=== PATIENT | female | born 1995 | race Caucasian/White ===

== ENCOUNTER 2017-09-21 07:49 | Emergency (ER) | payer BC, OTHER ==
[~2017-09-21] VITALS: Ht 152.4 cm; Wt 56.5 kg
[2017-09-21 07:52] VITALS: TEMP 36.6; Ht 152.4 cm; Wt 56.5 kg
[2017-09-21] MEDS ORDERED: SODIUM CHLORIDE 0.9% 1000ML 1,000 ML IV STA (08:03)
[2017-09-21] MEDS ORDERED: ONDANSETRON INJ 2 MG/ML 2 ML VIAL IV STA (08:03)
[2017-09-21] MEDS: MoRPHine SULFATE 4 MG/ML 1 ML CARP\\VIAL IV PRN ×2 (08:41→10:34)
[2017-09-21 08:48] LABS: BASO % 0.3 %; BASO ABS # 0.03 K/uL (0-0.2); EOS % 0.3 %; EOS ABS # 0.03 K/uL (0-0.5); HEMATOCRIT 45.7 % (37-47); HEMOGLOBIN 15.6 g/dL (12.0-16.0); IG# 0.03 K/uL (0.00-0.02); LYMPH % 15.6 %; LYMPH ABS # 1.54 K/uL (1.2-3.4); MEAN CELL VOLUME 84.8 fL (80-100); MEAN CORPUSCULAR HEMOGLOBIN 28.9 pg (25-34); MEAN CORPUSCULAR HGB CONC 34.1 g/dl (32-36); MEAN PLATELET VOLUME 9.3 fL (7.4-10.4); MONO % 11.9 %; MONO ABS # 1.18 K/uL (0.11-0.59); NEUT % 71.6 %; NEUT ABS # 7.08 K/uL (1.4-6.5); PLATELET COUNT 282 K/uL (130-400); RED CELL DISTRIBUTION WIDTH CV 12.3 % (11.5-14.5); RED CELL DISTRIBUTION WIDTH SD 37.5 fL (36.4-46.3); WHITE BLOOD COUNT 9.89 K/uL (4.8-10.8)
[2017-09-21 09:07] LABS: ALBUMIN 4.6 gm/dl (3.4-5.0); CALCIUM 9.6 mg/dl (8.5-10.1); CREATININE 0.78 mg/dl (0.60-1.20); TOTAL PROTEIN 8.6 gm/dl (6.4-8.2)
[2017-09-21] MEDS ORDERED: POTASSIUM CHLORIDE 10 MEQ TABCR PO STA (10:24)
[2017-09-21] MEDS ORDERED: OPTIRAY 320 IV PRN (10:30)
--- NOTE | 2017-09-21 12:09 | DIAGNOSTIC IMAGING REPORT ---
ABD/PELVIS IV CONTRAST ONLY CT DOSE: 274.89 mGy.cm HISTORY: Pain. Nausea. abd pain vomiting TECHNIQUE: Multiaxial CT images of the abdomen and pelvis were performed following the use of intravenous contrast. A dose lowering technique was utilized adhering to the principles of ALARA. COMPARISON STUDY: None. FINDINGS: Lung bases are clear. Liver spleen and pancreas appear uniform. There is general fluid-filled mild colonic distention with moderate wall thickening. There is a trace amount of generalized pericolonic infiltrative change. There is trace amount of free ascites within the right and to a lesser extent left paracolic gutter and pelvic cul-de-sac. This presumably is reactive. No evidence for abscess collection or obstruction. IMPRESSION: 1. Generalized colitis involving the bulk of the colon with multiple fluid-filled loops of fluid-filled somewhat edematous colon. 2. No evidence for abscess collection or obstruction. 3. Trace amount of abdominal and pelvic ascites. The above report was generated using voice recognition software. It may contain grammatical, syntax or spelling errors. Electronically signed by: Abhishek May M.D. 09/21/2017 12:08 PM Dictated Date/Time: 09/21/2017 12:03 PM
[2017-09-21] MEDS ORDERED: ONDA4TAB10 SL (13:03)
--- NOTE | 2017-09-21 13:04 | EMERGENCY ROOM VISIT NOTE ---
History Report prepared by Aldo: Venkatesh Trejo Under the Supervision of: Dr. Chin Horn D.O. First contact with patient: 07:59 Chief Complaint: ABDOMINAL PAIN Stated Complaint: NAUSEA,VOMITING,ABD PAIN History of Present Illness The patient is a 21 year old female who presents to the Emergency Room with complaints of daily nausea, vomiting, and diarrhea that she has been experiencing for the past week. The patient notes that the symptoms have been intermittent for the past "couple of weeks," but adds that they have been more frequent/severe for the past week. She notes that she vomited 4 times already this morning. She is on her menstrual cycle currently which she has been on " for like a month now." Source of History: patient Onset: Past week Position: abdomen Quality: other (Nausea) Timing: intermittent (for "couple" of weeks), other (daily for the past week ) Associated Symptoms: + vomiting, + abdominal pain, + diarrhea Review of Systems See HPI for pertinent positives & negatives. A total of 10 systems reviewed and were otherwise negative. Past Medical & Surgical Patient denies past medical histories. Family History Patient reports no known family medical history. Social History Smoking Status: Never Smoker Marital Status: single Housing Status: lives with family Occupation Status: employed Current/Historical Medications Scheduled Ondasetron Odt (Zofran Odt), 4 MG SL Q6H Allergies Coded Allergies: Shellfish (Unverified Allergy, Intermediate, ., 09/21/17) Physical Exam Vital Signs Date Time Temp Pulse Resp B/P (MAP) Pulse Ox O2 Delivery O2 Flow Rate FiO2 09/21/17 12:43 72 18 110/78 100 Room Air 09/21/17 11:47 78 16 109/74 98 Room Air 09/21/17 09:14 79 16 103/73 98 Room Air 09/21/17 07:52 36.6 87 18 117/79 100 Room Air Physical Exam CONSTITUTIONAL/VITAL SIGNS: Reviewed / noted above. GENERAL: Non-toxic in appearance. INTEGUMENTARY: Warm, dry, and Parchment. HEAD: Normocephalic. EYES: without scleral icterus or trauma. ENT/OROPHARYNX: clear and moist. LYMPHADENOPATHY/NECK: Is supple without lymphadenopathy or meningismus. RESPIRATORY: Lungs clear and equal. CARDIOVASCULAR: Regular rate and rhythm. GI/ABDOMEN: Soft with tenderness to palpation of the periumbilical area. No organomegaly or pulsatile mass. No rebound or guarding. Normal bowel sounds. EXTREMITIES: Warm and well perfused. BACK: No CVA tenderness. NEUROLOGICAL: Intact without focal deficits. PSYCHIATRIC: normal affect. MUSCULOSKELETAL: Normally developed with good muscle tone. Medical Decision & Procedures Laboratory Results 09/21/17 08:30 Red Blood Count 5.39, Mean Corpuscular Volume 84.8, Mean Corpuscular Hemoglobin 28.9, Mean Corpuscular Hemoglobin Concent 34.1, Mean Platelet Volume 9.3, Neutrophils (%) (Auto) 71.6, Lymphocytes (%) (Auto) 15.6, Monocytes (%) (Auto) 11.9, Eosinophils (%) (Auto) 0.3, Basophils (%) (Auto) 0.3, Neutrophils # (Auto ) 7.08, Lymphocytes # (Auto) 1.54, Monocytes # (Auto) 1.18, Eosinophils # (Auto ) 0.03, Basophils # (Auto) 0.03 09/21/17 08:30 Test 09/21/17 08:30 09/21/17 08:35 White Blood Count 9.89 K/uL (4.8-10.8) Red Blood Count 5.39 M/uL (4.2-5.4) Hemoglobin 15.6 g/dL (12.0-16.0) Hematocrit 45.7 % (37-47) Mean Corpuscular Volume 84.8 fL (80-100) Mean Corpuscular Hemoglobin 28.9 pg (25-34) Mean Corpuscular Hemoglobin Concent 34.1 g/dl (32-36) Platelet Count 282 K/uL (130-400) Mean Platelet Volume 9.3 fL (7.4-10.4) Neutrophils (%) (Auto) 71.6 % Lymphocytes (%) (Auto) 15.6 % Monocytes (%) (Auto) 11.9 % Eosinophils (%) (Auto) 0.3 % Basophils (%) (Auto) 0.3 % Neutrophils # (Auto) 7.08 K/uL (1.4-6.5) Lymphocytes # (Auto) 1.54 K/uL (1.2-3.4) Monocytes # (Auto) 1.18 K/uL (0.11-0.59) Eosinophils # (Auto) 0.03 K/uL (0-0.5) Basophils # (Auto) 0.03 K/uL (0-0.2) RDW Standard Deviation 37.5 fL (36.4-46.3) RDW Coefficient of Variation 12.3 % (11.5-14.5) Immature Granulocyte % (Auto) 0.3 % Immature Granulocyte # (Auto) 0.03 K/uL (0.00-0.02) Anion Gap 8.0 mmol/L (3-11) Est Creatinine Clear Calc Drug Dose 89.1 ml/min Estimated GFR () 125.1 Estimated GFR (Non- 107.9 BUN/Creatinine Ratio 9.6 (10-20) Calcium Level 9.6 mg/dl (8.5-10.1) Total Bilirubin 1.5 mg/dl (0.2-1) Direct Bilirubin 0.4 mg/dl (0-0.2) Aspartate Amino Transf (AST/SGOT) 18 U/L (15-37) Alanine Aminotransferase (ALT/SGPT) 18 U/L (12-78) Alkaline Phosphatase 48 U/L (45-117) Total Protein 8.6 gm/dl (6.4-8.2) Albumin 4.6 gm/dl (3.4-5.0) Lipase 58 U/L (73-393) Urine Color DK YELLOW Urine Appearance CLOUDY (CLEAR) Urine pH 5.5 (4.5-7.5) Urine Specific [place] 1.040 (1.000-1.030) Urine Protein 1+ (NEG) Urine Glucose (UA) NEG (NEG) Urine Ketones 3+ (NEG) Urine Occult Blood 3+ (NEG) Urine Nitrite NEG (NEG) Urine Bilirubin NEG (NEG) Urine Urobilinogen NEG (NEG) Urine Leukocyte Esterase SMALL (NEG) Urine WBC (Auto) 10-30 /hpf (0-5) Urine RBC (Auto) 5-10 /hpf (0-4) Urine Hyaline Casts (Auto) /lpf (0-5) Urine Epithelial Cells (Auto) >30 /lpf (0-5) Urine Bacteria (Auto) 1+ (NEG) Urine Crystals CALCIUM OXALATE (NONE Urine Pathogenic Casts /lpf (0) Urine Test NEG (NEG) Date/Time Source Procedure Growth Status 09/21/17 09:24 Stool C.difficile Toxin B Gene (PCR) - Final No C. difficile toxin B gene detected Complete Laboratory results as stated above per my review. Medications Administered Medications (Trade) Dose Ordered Sig/Charlie Route Start Time Stop Time Status Last Admin Dose Admin Sodium Chloride 1,000 ml @ 999 mls/hr Q1H1M STAT IV 09/21/17 08:03 09/21/17 09:03 DC 09/21/17 08:40 999 MLS/HR Ondansetron HCl (Zofran Inj) 4 mg NOW STAT IV 09/21/17 08:03 09/21/17 08:05 DC 09/21/17 08:41 4 MG Morphine Sulfate (MoRPHine SULFATE INJ) 4 mg Q1H PRN IV 09/21/17 08:15 10/05/17 08:14 09/21/17 10:34 4 MG Potassium Chloride (Klor-Con M10) 40 meq NOW STAT PO 09/21/17 10:24 09/21/17 10:25 DC 09/21/17 10:35 40 MEQ ED Course 0801: Previous medical records were reviewed. The patient was evaluated in room B10. A complete history and physical examination was performed. 0803: Ordered 4 mg Zofran IV, Sodium Chloride 1000 mL @ 999 mL/hr IV. 0815: Ordered Morphine Sulfate 4 mg IV. 1026: I checked on the patient at this time. Medical Decision Differential considered: pancreatitis, hepatitis, or acute cholecystitis, AAA, UTI, pyelonephritis, kidney stones, appendicitis, diverticulitis, shingles, bowel obstruction mesenteric ischemia, intussusception,hernia, ovarian torsion, ruptured ovarian cyst,ectopic , . This is a 21-year-old female who presents to the ED with a chief complaint of abdominal pain. She reports also some nausea, vomiting diarrhea and she states that she has had the symptoms off and on for a couple weeks. It seemed to be worse today. She states that she had 4 episodes of vomiting today. She also reports that her last menstrual period started about a month ago. She has been having her period for the past month. She states that she has not seen a desktop specialist for this. Her vital signs are normal. Her exam reveals some tenderness around the periumbilical area. CBC is normal, chemistry panel does reveal a slight elevation of the bilirubin at 1.5 and the potassium is 3.0. Urine reveals 3+ ketones and some blood. The patient is currently on her menstrual cycle. It is otherwise contaminated. The C. difficile test was negative. A CT scan of the abdomen pelvis reveals some generalized colitis. The patient was told the results of the test. She was advised to follow-up with Dr. Waterman. She was also advised to possibly see GI for symptoms do not persist. 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 The patient is felt to be stable for discharge at this time. Prescription for Zofran was provided. While the patient was here, she was treated with IV fluids , IV Zofran, IV morphine and potassium p.o. Medication Reconcilliation Current Medication List: was personally reviewed by me Blood Pressure Screening Patient's blood pressure: Normal blood pressure Impression Primary Impression: Colitis Scribe Attestation The scribe's documentation has been prepared under my direction and personally reviewed by me in its entirety. I confirm that the note above accurately reflects all work, treatment, procedures, and medical decision making performed by me. Departure Information Dispostion Home / Self-Care Prescriptions Ondasetron Odt (ZOFRAN ODT) 4 Mg Tab 4 MG SL Q6H for Nausea, #20 TAB Prov: hCin Horn D.O. 09/21/17 Referrals No Doctor, Assigned (PCP) Patient Instructions My [facility] Additional Instructions Zofran: Allow one tablet to dissolve under the tongue every 6 hours as needed for nausea or vomiting. Follow-up with your doctor this week for recheck. Following up with GI specialist may be beneficial as well. Follow-up with your doctor for further care and evaluation in 1-2 days. Return to the emergency department for worsening or new symptoms or any concerns. You have been examined and treated today on an emergency basis only. This is not a substitute for, or an effort to provide, complete comprehensive medical care. It is impossible to recognize and treat all injuries or illnesses in a single emergency department visit. It is therefore important that you follow up closely with your doctor. Call as soon as possible for an appointment.
[2017-09-21 13:28] VITALS: BP 112/72; PULSE 69; O2SAT 100
[2017-09-23] MEDS ORDERED: PROM25TA9 PO (10:34)
== END 2017-09-21 13:29 | disposition home or self-care (01) ==
LOC: C.EDB 07:50
DX: K52.9 Noninfective gastroenteritis and colitis, unspecified (principal)

== ENCOUNTER → 2017-09-22 | Outpatient (CLI) | payer OTHER ==
[~2017-09-22] MED LIST: ONDA4TAB10 SL; PROM25TA9 PO
[2017-09-22 13:06] LABS: BASO % 0.5 %; BASO ABS # 0.03 K/uL (0-0.2); EOS % 0.2 %; EOS ABS # 0.01 K/uL (0-0.5); HEMATOCRIT 39.2 % (37-47); HEMOGLOBIN 13.1 g/dL (12.0-16.0); IG# 0.01 K/uL (0.00-0.02); LYMPH % 23.2 %; LYMPH ABS # 1.42 K/uL (1.2-3.4); MEAN CELL VOLUME 85.6 fL (80-100); MEAN CORPUSCULAR HEMOGLOBIN 28.6 pg (25-34); MEAN CORPUSCULAR HGB CONC 33.4 g/dl (32-36); MEAN PLATELET VOLUME 9.9 fL (7.4-10.4); MONO % 12.9 %; MONO ABS # 0.79 K/uL (0.11-0.59); NEUT ABS # 3.85 K/uL (1.4-6.5); PLATELET COUNT 275 K/uL (130-400); RED CELL DISTRIBUTION WIDTH CV 12.4 % (11.5-14.5); RED CELL DISTRIBUTION WIDTH SD 38.8 fL (36.4-46.3); WHITE BLOOD COUNT 6.11 K/uL (4.8-10.8)
[2017-09-22 13:41] LABS: BLOOD UREA NITROGEN 4 mg/dl (7-18); CREATININE 0.74 mg/dl (0.60-1.20); GLUCOSE 90 mg/dl (70-99)
[2017-09-22 13:42] LABS: ALBUMIN 3.7 gm/dl (3.4-5.0); ALKALINE PHOSPHATASE 44 U/L (45-117); ALT/SGPT 26 U/L (12-78); AST/SGOT 19 U/L (15-37); CALCIUM 9.3 mg/dl (8.5-10.1); CARBON DIOXIDE 28 mmol/L (21-32); SODIUM 136 mmol/L (136-145); TOTAL PROTEIN 7.1 gm/dl (6.4-8.2)
== END | disposition home or self-care (01) ==
LOC: C.LABPBG 10:48
PROVIDERS: ATTEND Physician Assistant
DX: R11.2 Nausea with vomiting, unspecified (principal); R19.7 Diarrhea, unspecified

== ENCOUNTER → 2017-09-24 | Day surgery (SDC) | payer OTHER ==
[2017-09-23 10:34] VITALS: BMI 24.0
[~2017-09-24] VITALS: Ht 152.4 cm; Wt 57.3 kg
[~2017-09-24] MED LIST changes: +LIDOCAINE HCL 2% 2 ML VIAL (20MG/ML) ONE; +MIDAZOLAM HCL 1 MG/ML 2ML VIAL ONE; -ONDA4TAB10 SL; +PROPOFOL IV EMULSION 10 MG/ML 20 ML VIAL ONE; +SODIUM CHLORIDE 0.9% 500ML 500 ML IV ONE
[2017-09-24 14:44] VITALS: Ht 152.4 cm; Wt 57.3 kg
--- NOTE | 2017-09-24 15:29 | Endo History and Physical ---
History & Physical Date of Service: Sep 24, 2017. Chief Complaint: NAUSEA VOMITING DIARRHEA Referring Physician: DR. JEFFERS History of Present Illness 21 yo CF who presents for EGD and colonoscopy secondary to nausea, vomiting and diarrhea. Past Surgical History Hx Cardiac Surgery: No Hx Internal Defibrillator: No Hx Pacemaker: No Hx Abdominal Surgery: Yes (COLON RESECTION AND THELMA ( AN )) Hx of Implantable Prosthesis: No Hx Post-Op Nausea and Vomiting: No Hx Cancer Surgery: No Hx Thoracic Surgery: No Hx Orthopedic: No Hx Urinary Tract Surgery: No Family History None Social History Smoking Status: Never Smoker Hx Substance Use: No Allergies Coded Allergies: Shellfish (Verified Allergy, Intermediate, ANAPHYLAXIS, 09/24/17) Red Dye (Verified Allergy, Unknown, ANAPHYLAXIS, 09/23/17) Current Medications Reported Home Medications Medications Dose Route/Sig Max Daily Dose Days Date Category Phenergan (Promethazine HCl) 25 Mg Tab 25 Mg PO Q6H PRN 09/23/17 Reported Vital Signs Weight (Kilograms): 57.27 Height (Feet): 5 Height (Inches): 0 Date Time Temp Pulse Resp B/P (MAP) Pulse Ox O2 Delivery O2 Flow Rate FiO2 09/24/17 14:57 36.8 98 16 122/79 (93) 100 Room Air Physical Exam General Appearance: WD/WN, no apparent distress Respiratory/Chest: Auscultation: breath sounds normal Cardiovascular: Heart Auscultation: RRR Abdomen: Bowel Sounds: normal Inspection & Palpation: soft, non-distended, no tenderness, guarding & rebound Assessment and Plan Assessment: 21 yo CF who presents for EGD and colonoscopy secondary to nausea, vomiting and diarrhea. Plan: Proceed with EGD and colonoscopy.
--- NOTE | 2017-09-24 16:27 | GI REPORT ---
Patient Name: Jocelynn Quintana Procedure Date: 09/24/2017 3:33 PM Date of : 1995 Admit Type: Outpatient Age: 21 Gender: Female Attending MD: Luis Miguel Rodriguez DO Procedure: Upper GI endoscopy Providers: Luis Miguel Rodriguez DO Referring MD: Mago Goyal Indications: Nausea with vomiting Medicines: Monitored Anesthesia Care Complications: No immediate complications. Estimated Blood Loss: Estimated blood loss: none. Procedure: Pre-Anesthesia Assessment: - Prior to the procedure, a History and Physical was performed, and patient medications and allergies were reviewed. The patient's tolerance of previous anesthesia was also reviewed. The risks and benefits of the procedure and the sedation options and risks were discussed with the patient. All questions were answered, and informed consent was obtained. Prior Anticoagulants: The patient has taken no previous anticoagulant or antiplatelet agents. ASA Grade Assessment: I - A normal, healthy patient. After reviewing the risks and benefits, the patient was deemed in satisfactory condition to undergo the procedure. After obtaining informed consent, the endoscope was passed under direct vision. Throughout the procedure, the patient's blood pressure, pulse, and oxygen saturations were monitored continuously. The scope was introduced through the mouth, and advanced to the second part of duodenum. The upper GI endoscopy was accomplished without difficulty. The patient tolerated the procedure well. Findings: LA Grade A (one or more mucosal breaks less than 5 mm, not extending between tops of 2 mucosal folds) esophagitis with no bleeding was found 38 cm from the incisors. The entire examined stomach was normal. Biopsies were taken with a cold forceps for histology. The examined duodenum was normal. Biopsies for histology were taken with a cold forceps for evaluation of celiac disease. Impression: - LA Grade A reflux esophagitis. - Normal stomach. Biopsied. - Normal examined duodenum. Biopsied. Recommendation: - Resume previous diet. - Use Protonix (pantoprazole) 40 mg PO daily. - Await pathology results. - Return to GI office as previously scheduled. Luis Miguel Rodriguez DO 09/24/2017 4:26:35 PM This report has been signed electronically. Note Initiated On: 09/24/2017 3:33 PM Number of Addenda: 0 I attest to the content of the Intraoperative Record and orders documented therein, exceptions below {[id number]}
--- NOTE | 2017-09-24 16:29 | Anesthesiology Progress Note ---
Anesthesia Post Op Note Date & Time Sep 24, 2017 at 16:28 Vital Signs Pain Intensity: 4 Vital Signs Past 12 Hours Date Time Temp Pulse Resp B/P (MAP) Pulse Ox O2 Delivery O2 Flow Rate FiO2 09/24/17 16:19 36.8 89 14 93/70 (78) 98 Room Air 09/24/17 14:57 36.8 98 16 122/79 (93) 100 Room Air Notes Mental Status: alert / awake / arousable, participated in evaluation Pt Amnestic to Procedure: Yes Nausea / Vomiting: adequately controlled Pain: adequately controlled Airway Patency, RR, SpO2: stable & adequate BP & HR: stable & adequate Hydration State: stable & adequate Anesthetic Complications: no major complications apparent
--- NOTE | 2017-09-24 16:31 | GI REPORT ---
Patient Name: Jocelynn Quintana Procedure Date: 09/24/2017 4:00 PM Date of : 1995 Admit Type: Outpatient Age: 21 Gender: Female Attending MD: Luis Miguel Rodriguez DO Procedure: Colonoscopy Providers: Luis Miguel Rodriguez DO Referring MD: Mago Goyal Indications: Chronic diarrhea Medicines: Monitored Anesthesia Care Complications: No immediate complications. Estimated Blood Loss: Estimated blood loss: none. Procedure: Pre-Anesthesia Assessment: - Prior to the procedure, a History and Physical was performed, and patient medications and allergies were reviewed. The patient's tolerance of previous anesthesia was also reviewed. The risks and benefits of the procedure and the sedation options and risks were discussed with the patient. All questions were answered, and informed consent was obtained. Prior Anticoagulants: The patient has taken no previous anticoagulant or antiplatelet agents. ASA Grade Assessment: I - A normal, healthy patient. After reviewing the risks and benefits, the patient was deemed in satisfactory condition to undergo the procedure. After I obtained informed consent, the scope was passed under direct vision. Throughout the procedure, the patient's blood pressure, pulse, and oxygen saturations were monitored continuously. The scope was introduced through the anus and advanced to the ileocolonic anastomosis. The colonoscopy was performed without difficulty. The patient tolerated the procedure well. The quality of the bowel preparation was good. The terminal ileum, ileocecal valve, appendiceal orifice, and rectum were photographed. Findings: The perianal and digital rectal examinations were normal. Non-bleeding internal hemorrhoids were found during retroflexion. The hemorrhoids were small. Several random biopsies were obtained with cold forceps for histology randomly in the entire colon. Fluid aspiration for stool studies was performed in the entire colon. Impression: - Non-bleeding internal hemorrhoids. - Several random biopsies were obtained in the entire colon. - Fluid aspiration was performed. Recommendation: - Resume previous diet. - Continue present medications. - Repeat colonoscopy for surveillance based on pathology results. - Return to GI office as previously scheduled. Luis Miguel Rodriguez DO 09/24/2017 4:31:15 PM This report has been signed electronically. Note Initiated On: 09/24/2017 4:00 PM Number of Addenda: 0 I attest to the content of the Intraoperative Record and orders documented therein, exceptions below {[id number]}
--- NOTE | 2017-09-24 16:33 | Discharge Instructions ---
Endoscopy Patient Instructions Date / Procedure(s) Performed Sep 24, 2017. Colonoscopy Allergy Information Coded Allergies: Shellfish (Verified Allergy, Intermediate, ANAPHYLAXIS, 09/24/17) Red Dye (Verified Allergy, Unknown, ANAPHYLAXIS, 09/23/17) Discharge Date / Findings Sep 24, 2017. EGD: Duodenal biopsies, Gastric antrum biopsies, Esophagitis Colonoscopy: Random colon biopsies, Stool studies Medication Instructions 1) Continue Protonix 40mg by mouth each morning 1/2 hour prior to breakfast. 2) OK to resume all medications today as prescribed Reported Home Medications Medications Dose Route/Sig Max Daily Dose Days Date Category Phenergan (Promethazine HCl) 25 Mg Tab 25 Mg PO Q6H PRN 09/23/17 Reported Provider Instructions Activity Restrictions - No exercising or heavy lifting for 24 hours. - Do not drink alcohol the day of the procedure. - Do not drive a car or operate machinery until the day after the procedure. - Do not make any important decisions or sign important papers in 24 hours after the procedure. Following Day: - Return to full activity which may include returning to work/school. Diet Start your diet with liquids and light foods (jello, soup, juice, toast). Then eat your usual diet if not nauseated. Treatment For Common After Affects For mild abdominal pain, bloating, or excessive gas: - Rest - Eat lightly - Lie on right side Follow-Up Information Follow-up with DR. JEFFERS as scheduled Anesthesia Information What You Should Know You have had a procedure that required some medicine to reduce anxiety and discomfort. This treatment is called moderate sedation. After receiving the treatment, you may be sleepy, but you will be able to breathe on your own. The effects of the treatment may last for several hours. Follow these instructions along with Activity/Diet recommendations noted above: * Do NOT do anything where dizziness or clumsiness would be dangerous. * Rest quietly at home today, then you can be up and about tomorrow. * Have a responsible person stay with you the rest of today. * You may have had an I.V. today. If so, you may take the dressing off later today. Recommendations Call your doctor if: * Trouble breathing * Continuous vomiting for more than 24 hours * Temperature above 101 degrees * Severe abdominal pain or bloating * Pain not relieved by pain medicine ordered * There is increased drainage or redness from any incision * A large amount of rectal bleeding greater than 2-3 tablespoons. (If you had a polyp/s removed or have hemorrhoids, a small amount of blood - from the rectum is to be expected.) * You have any unanswered questions or concerns. IN THE EVENT OF A SERIOUS EMERGENCY, GO TO THE NEAREST EMERGENCY ROOM Your discharge instructions were prepared by provider Luis Miguel Rodriguez. Patient Instructions Signature Page Jocelynn Quintana Patient (or Guardian) Signature/Date: I have read and understand the instructions given to me by my caregivers. Caregiver/RN/Doctor Signature/Date: The above-named patient and/or guardian has received patient instructions on this date. + Original Patient Signature Page (only) stays with chart. Please make copy for patient.
[2017-09-24 16:49] VITALS: BP 115/83; PULSE 64; O2SAT 95
== END | disposition home or self-care (01) ==
LOC: C.GI 14:31
PROVIDERS: ATTEND Internal Medicine
DX: K52.9 Noninfective gastroenteritis and colitis, unspecified (principal); K64.8 Other hemorrhoids; R11.2 Nausea with vomiting, unspecified; K21.0 Gastro-esophageal reflux disease with esophagitis; Z88.8 Allergy status to other drugs, medicaments and biological substances; Z91.013 Allergy to seafood

== ENCOUNTER → 2017-09-28 | Outpatient (CLI) | payer OTHER ==
[~2017-09-28] MED LIST changes: -LIDOCAINE HCL 2% 2 ML VIAL (20MG/ML) ONE; -MIDAZOLAM HCL 1 MG/ML 2ML VIAL ONE; -PROPOFOL IV EMULSION 10 MG/ML 20 ML VIAL ONE; -SODIUM CHLORIDE 0.9% 500ML 500 ML IV ONE
== END | disposition home or self-care (01) ==
LOC: C.LAB 17:26
PROVIDERS: ATTEND Physician Assistant
DX: R19.7 Diarrhea, unspecified (principal)

== ENCOUNTER 2019-12-16 01:41 | Inpatient (IN) ==
[2019-12-16] MEDS ORDERED: OXYTOCIN 30 UNITS/500 ML BAG IV PRN (04:38)
[2019-12-16] MEDS: LACTATED RINGER'S 1,000 ML IV PRN ×2 (04:57→05:58)
[2019-12-16] MEDS ORDERED: BUPIVACAINE 0.25% 30 ML VIAL ONE (05:11)
[2019-12-16] MEDS ORDERED: fentaNYL citrate 100 MCG/2 ML VIAL ONE (05:11)
[2019-12-16] MEDS ORDERED: SODIUM CHLORIDE 0.9% INJ 10 ML VIAL ONE (05:11)
[2019-12-16] MEDS ORDERED: ePHEDrine sulfate 50 MG/ML AMP ONE (05:11)
[2019-12-16] MEDS ORDERED: fentaNYL 2MCG/ML ROPIVACAINE 1.25MG/ML 100 ML BAG EPI ONE (05:12)
[2019-12-16 05:25] LABS: Hematocrit (blood only) 29.5 % (37-47); Hemoglobin 9.4 g/dL (12.0-16.0); Mean Corpuscular Hemoglobin 23.9 pg (25-34); Mean Corpuscular Hgb Conc 31.9 g/dL (32-36); Mean Corpuscular Volume 75.1 fL (80-100); Mean Platelet Volume 9.3 fL (7.4-10.4); Platelet Count 227 K/uL (130-400); RDW Coefficient of Variation 13.6 % (11.5-14.5); RDW Standard Deviation 37.7 fL (36.4-46.3); Red Blood Count 3.93 M/uL (4.2-5.4); White Blood Count 20.54 K/uL (4.8-10.8)
--- NOTE | 2019-12-16 05:35 | Anesthesiology Consultation ---
Date of Service December 16, 2019 Assessment & Plan (1) Encounter for pre-operative examination: Chart Review Chart Review: Acceptable Risk for Labor Epidural History Height/Weight Height: 5 ft Weight: 68.039 kg Allergies Allergy/AdvReac Type Severity Reaction Status Date / Time shellfish derived Allergy Intermediate ANAPHYLAXIS Verified 12/16/19 02:26 red dye Allergy Unknown ANAPHYLAXIS Verified 12/16/19 02:26 No Known Drug Allergies Allergy Unknown Verified 12/16/19 02:26 Medications Home Medications Medication Instructions Recorded Confirmed Last Taken pantoprazole 40 mg PO DAILY 10/20/19 12/16/19 12/15/19 prenat.vits,shar,gxb-vemf-zofhb 1 tab PO DAILY 10/20/19 12/16/19 12/15/19 [ Vitamin] Active Medications Generic Name Dose Route Start Last Admin Trade Name Freq PRN Reason Stop Dose Admin Lactated Ringer's 1,000 mls @ 125 mls/hr 12/16/19 04:38 12/16/19 04:57 Lr IV 12/18/19 04:37 999 mls/hr .Q8H PRN Administration L&D Protocol Protocol Past Medical History Medical History Abdominal pain affecting , antepartum Cervical cancer screening Chronic abdominal pain Colitis Dysuria Encounter for anatomic survey Urinary tract infection UTI (urinary tract infection) Varicella vaccine Past Family History Family History Father Myocardial infarction Grandmother (Maternal) Diabetes Past Surgical History Surgical History History of appendectomy History of cholecystectomy History of liver biopsy History of partial colectomy 13cm removed as a child Social History Smoking Status: Never smoker Hx Alcohol Use: No Hx Substance Use: No substance use type: does not use Physical Exam Vital Signs Last Vital Signs Temp 36.6 C 12/16/19 02:01 Pulse 101 H 12/16/19 05:29 Resp 18 12/16/19 02:01 BP 119/72 12/16/19 02:01 Pulse Ox 100 12/16/19 05:29 Testing Laboratory Results 12/16/19 05:05
[2019-12-16] MEDS ORDERED: ONDANSETRON INJ 2 MG/ML 2 ML VIAL IV PRN (06:25)
[2019-12-16] MEDS ORDERED: fentaNYL 2MCG/ML ROPIVACAINE 1.25MG/ML 100 ML BAG EPI PRN (06:25)
[2019-12-16] MEDS ORDERED: NALOXONE HCL 0.4 MG/1 ML VIAL/CARP IV PRN (06:25)
[2019-12-16] MEDS ORDERED: ePHEDrine sulfate 50 MG/ML AMP IV PRN (06:25)
[2019-12-16] MEDS ORDERED: NALOXONE HCL 1 MG in SODIUM CHLORIDE 0.9% 1000ML 1,000 ML IV PRN (06:25)
--- NOTE | 2019-12-16 07:11 | Labor Progress Brief Note ---
Date of Service December 16, 2019 Subjective Patient seen at 0630, just getting comfortable with epidural at that time. No urge to push. Assessment & Plan (1) Normal labor and delivery: Anticipate . Admission and Anticipated Discharge Date Admission Date: December 16, 2019 Physical Exam Physical Exam: 100/0 FHT Cat 1 [place] Q3 LOF clear Results & Data ([facility]) Vital Signs (Past 12 Hours) Vital Signs Temp Pulse Resp BP Pulse Ox 12/16/19 07:06 95 H 107/60 12/16/19 07:04 100 H 100 12/16/19 07:00 104 H 18 108/62 12/16/19 06:59 113 H 100 12/16/19 06:55 117 H 115/58 L 12/16/19 06:54 114 H 100 12/16/19 06:50 113 H 105/56 L 12/16/19 06:49 120 H 100 12/16/19 06:46 111 H 108/58 L 12/16/19 06:44 102 H 100 12/16/19 06:41 123 H 105/59 L 12/16/19 06:39 118 H 100 12/16/19 06:34 122 H 99/54 L 100 12/16/19 06:30 95 H 108/63 12/16/19 06:29 89 100 12/16/19 06:28 103 H 110/64 12/16/19 06:26 108 H 115/75 12/16/19 06:24 91 H 114/70 100 12/16/19 06:21 80 97/52 L 12/16/19 06:19 87 95/66 L 100 12/16/19 06:14 109 H 98 12/16/19 06:09 112 H 100 12/16/19 06:04 99 H 100 12/16/19 05:59 100 H 100 12/16/19 05:55 121 H 94 12/16/19 05:54 103 H 100 12/16/19 05:49 119 H 100 12/16/19 05:44 103 H 100 12/16/19 05:39 106 H 100 12/16/19 05:34 103 H 100 12/16/19 05:29 101 H 100 12/16/19 05:24 81 100 12/16/19 05:19 98 H 100 12/16/19 05:14 96 H 100 12/16/19 05:09 113 H 100 12/16/19 05:04 116 H 100 12/16/19 05:00 97.9 F 18 12/16/19 04:59 109 H 100 12/16/19 02:01 97.9 F 118 H 18 119/72 12/16/19 02:00 97.9 F 18 Coding Level of Care Code None Diagnoses Normal labor and delivery O80
--- NOTE | 2019-12-16 08:17 | Delivery Summary ---
Vaginal Delivery Summary Date of Service December 16, 2019 Vaginal Delivery Summary DIAGNOSES: 1. Vides intrauterine at 39w4d gestation. 2. Spontaneous onset of labor. 3. Group B Streptococcus Neg. PROCEDURE: Spontaneous vaginal delivery. SURGEON: Casie Girard MD. NICKEL PLANT OPERATOR: None. ESTIMATED BLOOD LOSS: 300 mL. COMPLICATIONS: None. PLACENTA: Spontaneous and intact with a 3-vessel cord. DISPOSITION: Stable to labor and delivery. DESCRIPTION: The patient pushed well and brought the head to in CHRYSTAL position. The 's head was allowed to deliver with contraction force and no further active pushing, with the perineum protected during this time. The shoulders delivered easily with a maternal pushing effort. There was no nuchal cord. The right shoulder was anterior. The shoulders and body delivered without any difficulty, and the was placed on the maternal abdomen. It was vigorous and moving all extremities, and making respiratory efforts. The cord was doubly clamped by the MD and then cut by the FOB. The placenta delivered spontaneously and was noted to be intact and with a 3VC. The cervix, vagina and perineum were examined and were found to be without defect requiring repair; shallow bilateral labial abrasions were present but hemostatic. The fundus was firm and lochia minimal immediately after delivery. [facility] Vaginal Delivery Charge Vaginal Delivery Codes: 94023 global code for the antepartum, delivery, and post-
[2019-12-16] MEDS ORDERED: IBUPROFEN 600 MG TAB PO PRN (08:49)
[2019-12-16] MEDS ORDERED: ACETAMINOPHEN 325 MG TAB PO PRN (08:49)
[2019-12-16] MEDS ORDERED: DIPHTHERIA/TETANUS/PERTUSSIS 0.5 ML SYR/VIAL IM ONE (08:49)
[2019-12-16] MEDS ORDERED: SUPERCREAM 0.870% 15 GM JAR EXT PRN (08:49)
[2019-12-16] MEDS ORDERED: oxyCODONE/ACETAMINOPHEN 5mg/325mg TAB PO PRN (08:49)
[2019-12-16] MEDS ORDERED: HYDROCORTISONE ACETATE 25 MG SUPP PR PRN (08:49)
[2019-12-16] MEDS ORDERED: BENZOCAINE 20% AER SPR 82.5 GM CAN EXT PRN (08:49)
--- NOTE | 2019-12-16 09:30 | Anesthesia Procedure Note ---
Date of Service December 16, 2019 Anesthesia Post Epidural Note Vital Signs Vital Signs: Temp Pulse Resp BP Pulse Ox 36.6 C 94 H 18 115/56 L 100 12/16/19 07:21 12/16/19 09:15 12/16/19 09:10 12/16/19 09:15 12/16/19 08:04 Notes Mental Status: alert / awake / arousable and participated in evaluation Nausea / Vomiting: adequately controlled Pain: adequately controlled Airway Patency, RR, SpO2: stable & adequate BP & HR: stable & adequate Hydration State: stable & adequate Neuraxial Anesthesia: was administered and sensory block is resolving Anesthetic Complications: no major complications apparent and Pt Satisfied with anesthetic care Epidural: Removed without complications and With tip intact Notes: Epidural site clean, dry and intact. No signs of edema, erythema or bruising at insertion site. Pt instructed to request anesthesia if she has residual lower extremity numbness or if she develops lower extremity pain or weakness, back pain or headache.
[2019-12-16] MEDS: PANTOprazole 40 MG TAB PO SCH (09:31)
--- NOTE | 2019-12-16 13:24 | Obstetrical Progress Note ---
Date of Service December 16, 2019 Assessment & Plan (1) Syncopal episodes: small bruise above right eye after having near syncopal episode in the shower in the immediate time period ice as needed to the area I do not feel that x-rays or further evaluation is needed at this time. Subjective Ambulation: ambulating normally Passing Gas:: Yes Diet Tolerance:: regular diet Lochia:: Moderate when finishing her shower after delivery, she started to pass out and was helped to the floor of the shower. after she was moved to the bed, she was noted to have a bruise on her right orbital ridge. no other bruises or redness noted when I examined her. the bruised area is not tender. she has no visual changes or headache Physical Exam Constitutional WD/WN, vitals as above ENMT ecchymosis above right eye- non tender no masses palpated Psychiatric A+Ox3, euthymic affect Results & Data ([facility]) Vital Signs (Past 12 Hours) Vital Signs Temp Pulse Resp BP Pulse Ox 12/16/19 11:00 18 12/16/19 10:26 112 H 104/70 12/16/19 10:15 96 H 104/69 12/16/19 10:00 90 108/73 12/16/19 09:55 18 12/16/19 09:46 88 108/68 12/16/19 09:30 95 H 106/55 L 12/16/19 09:25 18 L 12/16/19 09:15 94 H 115/56 L 12/16/19 09:10 95 H 18 99/61 L 12/16/19 09:05 81 103/62 12/16/19 09:00 103 H 101/66 12/16/19 08:55 93 H 96/54 L 12/16/19 08:50 90 101/55 L 12/16/19 08:45 96 H 100/55 L 12/16/19 08:40 99 H 18 102/52 L 12/16/19 08:25 108 H 18 97/55 L 12/16/19 08:20 116 H 100/56 L 12/16/19 08:17 116 H 100/55 L 12/16/19 08:10 108 H 18 104/59 L 12/16/19 08:04 125 H 100 12/16/19 08:01 127 H 228/135 H 12/16/19 07:59 122 H 100 12/16/19 07:56 67 131/90 12/16/19 07:55 150 H 90 12/16/19 07:54 151 H 100 12/16/19 07:50 117 H 124/56 L 12/16/19 07:49 117 H 100 12/16/19 07:47 116 H 83 L 12/16/19 07:46 115 H 124/60 12/16/19 07:44 132 H 100 12/16/19 07:41 134 H 127/60 12/16/19 07:39 96 H 100 12/16/19 07:35 111 H 119/69 12/16/19 07:34 92 H 100 12/16/19 07:30 131 H 18 119/68 12/16/19 07:29 135 H 100 12/16/19 07:25 134 H 123/66 12/16/19 07:24 137 H 100 12/16/19 07:21 97.9 F 116 H 18 106/71 12/16/19 07:19 93 H 100 12/16/19 07:15 94 H 108/61 12/16/19 07:14 100 H 100 12/16/19 07:10 108 H 107/61 12/16/19 07:09 101 H 100 12/16/19 07:06 95 H 107/60 12/16/19 07:04 100 H 100 12/16/19 07:00 104 H 18 108/62 12/16/19 06:59 113 H 100 12/16/19 06:55 117 H 115/58 L 12/16/19 06:54 114 H 100 12/16/19 06:50 113 H 105/56 L 12/16/19 06:49 120 H 100 12/16/19 06:46 111 H 108/58 L 12/16/19 06:44 102 H 100 12/16/19 06:41 123 H 105/59 L 12/16/19 06:39 118 H 100 12/16/19 06:34 122 H 99/54 L 100 12/16/19 06:30 95 H 108/63 12/16/19 06:29 89 100 12/16/19 06:28 103 H 110/64 12/16/19 06:26 108 H 115/75 12/16/19 06:24 91 H 114/70 100 12/16/19 06:21 80 97/52 L 12/16/19 06:19 87 95/66 L 100 12/16/19 06:14 109 H 98 12/16/19 06:09 112 H 100 12/16/19 06:04 99 H 100 12/16/19 05:59 100 H 100 12/16/19 05:55 121 H 94 12/16/19 05:54 103 H 100 12/16/19 05:49 119 H 100 12/16/19 05:44 103 H 100 12/16/19 05:39 106 H 100 12/16/19 05:34 103 H 100 12/16/19 05:29 101 H 100 12/16/19 05:24 81 100 12/16/19 05:19 98 H 100 12/16/19 05:14 96 H 100 12/16/19 05:09 113 H 100 12/16/19 05:04 116 H 100 12/16/19 05:00 97.9 F 18 12/16/19 04:59 109 H 100 12/16/19 02:01 97.9 F 118 H 18 119/72 12/16/19 02:00 97.9 F 18
[2019-12-16] MEDS: DOCUSATE SODIUM 100 MG CAP PO SCH (19:32)
--- NOTE | 2019-12-17 06:44 | Obstetrical Progress Note ---
Date of Service <Catia Sherrie Rosas DO - Last Filed: 12/17/19 07:37> December 17, 2019 Assessment & Plan <Catia WrightMichael Rosas DO - Last Filed: 12/17/19 07:37> (1) state: - PNL: Rh pos, RI, GBS neg, COVID neg - Feels well today. Eating well, voiding well, ambulating well. - Pain well controlled with ibuprofen 600mg Q4H PRN - Routine vaginal delivery care -- OOB, ambulation, diet progression as tolerated - After discharge will have 6 week follow-up with Dr. Girard. Subjective <Catia WrightMichael Rosas DO - Last Filed: 12/17/19 07:37> Jocelynn Quintana is a 24 y/o female who is PPD #1 following spontaneous vaginal delivery at 39 and 4/7 weeks. She reports feeling well overall this morning. No abdominal cramping and 0/10 pain; states that she is not even needing the prescribed Ibuprofen prn. Voiding without dysuria. Tolerating meals overnight without difficulty, nausea, or vomiting. Patient has been able to ambulate some. Has persistent lochia with some improvement this morning. Currently without concerns or questions. Review of Systems Denies fever or chills. Denies shortness of breath or cough. Denies chest pain. Denies breast pain. Denies dysuria. Denies leg pain or leg swelling. Denies headache or changes in vision. Physical Exam <Catia Rosas DO - Last Filed: 12/17/19 07:37> General: Alert, oriented. No acute distress. Cardiac: Regular rate and rhythm. No murmurs. Respiratory: Clear to auscultation bilaterally a/p, no wheezes/rales/rhonchi. No increased work of breathing. Symmetrical chest rise. No respiratory distress. Abdomen: Soft, nontender, nondistended. Bowel sounds present. Uterus: Uterine fundus firm, palpable 2 cm below umbilicus. Lower Extremities: No lower extremity edema or swelling. No deep calf pain. Chivo's negative bilaterally. Results & Data ([facility]) <Catiajoaquín Rosas DO - Last Filed: 12/17/19 07:37> Vital Signs (Past 12 Hours) Vital Signs Temp Pulse Resp BP Pulse Ox 12/17/19 04:00 36.7 C 75 16 93/56 L 98 12/17/19 00:10 36.7 C 102 H 16 100/67 98 12/16/19 19:30 36.7 C 101 H 16 104/68 98 <Irasema Maxwell MD, FACOG - Last Filed: 12/17/19 08:03> Co-Signing Physician Notes Resident Physician Supervision Note: I was present with Dr. Rosas during the history and exam. I discussed the case with the resident and agree with the findings and plan as documented in the note. Any exceptions or clarifications are listed here: [None] Documented By: Irasema Maxwell MD, FACOG Resident Activity Tracking <Catia Rosas DO - Last Filed: 12/17/19 07:37> Resident Involvement: Resident Care Provided Care Provided: OB Delivery
[2019-12-17] MEDS: DOCUSATE SODIUM 100 MG CAP PO SCH ×2 (08:25→20:14)
[2019-12-17] MEDS: PRENATAL VITAMIN 1 TAB PO SCH (08:25)
[2019-12-17] MEDS: PANTOprazole 40 MG TAB PO SCH (09:32)
[2019-12-18 06:31] LABS: Hematocrit (blood only) 24.1 % (37-47); Hemoglobin 7.6 g/dL (12.0-16.0)
[2019-12-18] MEDS: PRENATAL VITAMIN 1 TAB PO SCH (08:17)
--- NOTE | 2019-12-18 08:17 | Obstetrical Progress Note ---
Date of Service December 18, 2019 Assessment & Plan (1) Supervision of normal intrauterine in primigravida: (2) state: - doing well - no orthostatic changes - desires d/c - encouraged to take extra Fe - instructions given - f/u in 6 weeks Subjective Ambulation: ambulating normally (not lightheaded) Physical Exam Constitutional WD/WN, vitals as above Gastrointestinal (Abdomen) Fundus firm below umbilicus Musculoskeletal No deep calf tenderness Results & Data ([facility]) Vital Signs (Past 12 Hours) Vital Signs Temp Pulse Resp BP Pulse Ox 12/17/19 23:30 98.1 F 94 H 16 96/63 L 97
[2019-12-18 08:49] VITALS: BP 99/63; PULSE 92; TEMP 98.2; O2SAT 98
== END 2019-12-18 11:55 | disposition home or self-care (01) | DRG 807 ==
LOC: OPB 01:41 → 4S1 01:42 → 4S2 11:00

== ENCOUNTER 2020-12-23 11:23 | Inpatient (IN) ==
[2020-12-23] MEDS ORDERED: LACTATED RINGER'S 1,000 ML IV PRN (12:04)
[2020-12-23] MEDS ORDERED: OXYTOCIN 30 UNITS/500 ML BAG IV PRN ×2 (12:04→14:05)
--- NOTE | 2020-12-23 12:14 | History & Physical Report ---
Date of Service December 23, 2020 Assessment & Plan (1) : Plan: 25 y/o at 38 5/7 wga presenting in labor VSS Fetus cat 1 Labor - plan arom when pt comfortable, tolerating ctx well and desires epidural if possible GBS neg History of Present Illness Chief Complaint: Contractions Primary Care Provider: Kailash Waterman MD 25 y/o at 38 5/7 wga presents w/ ctx increasing in frequency and intensity. 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 Denies hx STIs Allergies Allergy/AdvReac Type Severity Reaction Status Date / Time shellfish derived Allergy Intermediate ANAPHYLAXIS Verified 12/19/20 16:16 red dye Allergy Unknown ANAPHYLAXIS Verified 12/19/20 16:16 No Known Drug Allergies Allergy Unknown Verified 12/19/20 16:16 Home Medications Medication Instructions Recorded Confirmed Type pantoprazole 40 mg tablet,delayed 40 mg PO DAILY 10/20/19 12/19/20 History release prenat.vits,shar,[id number] 1 tab PO DAILY 10/20/19 12/19/20 History terconazole 0.4 % vaginal cream 1 appful VAGINAL DAILY 7 Days #45 g 07/27/20 12/19/20 Rx acetone (urine) test (Ketone Urine #50 ea 10/23/20 12/19/20 Rx Test) blood sugar diagnostic (OneTouch #150 ea 10/23/20 12/19/20 Rx Verio test strips) blood-glucose meter (OneTouch #1 ea 10/23/20 12/19/20 Rx Verio Flex meter) lancets 33 gauge (OneTouch Delica #150 ea 10/23/20 12/19/20 Rx Plus Lancet) mouthwash 1 dose PO .COMPLEX #60 ml 10/24/20 12/19/20 Rx Patient History Medical History (Updated 12/23/20 @ 12:13 by Nelida Denis MD) Abdominal pain affecting , antepartum Cervical cancer screening Chronic abdominal pain Colitis Dysuria Encounter for anatomic survey 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 Prolonged , antepartum Supervision of normal intrauterine in primigravida Urinary tract infection UTI (urinary tract infection) Varicella vaccine Surgical History (Updated 12/23/20 @ 12:13 by Nelida Denis MD) History of appendectomy History of cholecystectomy History of liver biopsy 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 Family History (Updated 05/02/20 @ 14:18 by Megan Bowen, RN) Father Myocardial infarction Grandmother (Maternal) Diabetes Mother Stroke Denies family history of Ovarian cancer Breast cancer Colorectal cancer Social History (Updated 05/02/20 @ 14:18 by Megan Bowen, GIO) Smoking Status: Never smoker Second Hand Exposure: No; Hx Alcohol Use: No Hx Substance Use: No Preferred Language: Montenegrin Communication Ability: Effective Casting Machine Service Operator Required: No Beliefs That Will Affect Care: None marital status: marital status details: Chico Deng (24) [phone] Current Living Situation: Spouse Current Living Situation Comment: FOB and child. 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 Other Information That Helps Us Care for You: No Feels Safe at Home: Yes Safety Concerns: Feels Safe At This Time Assistive Devices: None Physical Exam Genitourinary: OB Exam Abdomen: + vertex Manual OB Exam: + cervical dilation 10 cm, + cervical effacement 100% and + station + 1 (bulging bag) OB Exam Monitor Tracing: + external FHT monitor used, + external uterine monitor used (q3) and + category I (145/mod/+accel/-decel) Results & Data ([facility]) Vital Signs (Past 12 Hours) Vital Signs Temp Pulse Resp BP 12/23/20 11:50 98.4 F 20 12/23/20 11:38 113 H 108/69 Laboratory Results OB Labs: Blood Type O Positive 05/07/20 Antibody Screen NEGATIVE 05/07/20 Hemoglobin 11.4 g/dL (12.0-16.0) L 11/16/20 Hematocrit 34.5 % (37-47) L 11/16/20 Mean Corpuscular Volume 83.7 fL (80-100) 11/16/20 Platelet Count 199 K/uL (130-400) 11/16/20 Rubella IgG Antibody Immune (Immune) 05/07/20 Rapid Plasma Reagin Nonreactive (Nonreactive) 05/07/20 Hepatitis B Surface Antigen Neg (Neg) 05/07/20 HIV (1&2) Ab and P24 Ag, 4th Gener Neg (Neg) 05/07/20 Glucose 1 Hour 50 gm Load 137 mg/dl (70-130) H 07/17/20 Maternal Serum Alpha Fetoprotein 34.7 ng/mL 07/08/19 OB Optional Labs: Hemoglobin Electrophoresis Interp see note 08/16/20 Chlamydia trachomatis RNA NOT DETECTED (NOT DETECTED) 05/07/20 Neisseria gonorrhoeae RNA NOT DETECTED (NOT DETECTED) 05/07/20 Alpha Fetoprotein Triple Screen SEE NOTE 07/08/19 Labs Reviewed: low risk cfdna cf/sma neg Coding Level of Care Code None Diagnoses Z34.90
[2020-12-23 12:24] LABS: Hematocrit (blood only) 36.4 % (37-47); Hemoglobin 12.3 g/dL (12.0-16.0); Mean Corpuscular Hemoglobin 28.9 pg (25-34); Mean Corpuscular Volume 85.4 fL (80-100); Mean Platelet Volume 9.8 fL (7.4-10.4); Platelet Count 149 K/uL (130-400); RDW Coefficient of Variation 15.2 % (11.5-14.5); RDW Standard Deviation 47.7 fL (36.4-46.3); Red Blood Count 4.26 M/uL (4.2-5.4)
[2020-12-23 12:32] LABS: Mean Corpuscular Hgb Conc 33.8 g/dL (32-36)
[2020-12-23] MEDS ORDERED: LIDOCAINE 1% LOCAL 20 ML VIAL ONE (13:01)
--- NOTE | 2020-12-23 14:04 | Delivery Summary ---
Vaginal Delivery Summary Date of Service December 23, 2020 Vaginal Delivery Summary and 1st Degree LAC PREOPERATIVE DIAGNOSIS: 1. Single intrauterine at 38 5/7 wga 2. Labor 3. A1GDM 4. COVID+ POSTOPERATIVE DIAGNOSIS: 1. Single intrauterine at 38 5/7 wga 2. Labor 3. A1GDM 4. COVID+ 5. Delivered PROCEDURE: 1. Normal spontaneous vaginal delivery. SURGEON: Nelida Denis MD ANESTHESIA: None ESTIMATED BLOOD LOSS: 300 mL FLUIDS: Continuous LR. URINE OUTPUT: None. COMPLICATIONS: None. CONDITION: Stable. INDICATIONS: 25 y/o at 38 5/7 wga presented with contractions increasing in frequency and intensity. On arrival, she was found to be complete. She did opt to try to get an epidural however began feeling much more pressure and so this was deferred. She underwent artificial rupture of membranes and desired to push. FINDINGS: A viable female , weight pending with Apgars of 8 and 9 at 1 and 5 minutes respectively. SPECIMEN: Cord blood OPERATIVE REPORT: The patient progressed to 10 cm, 100% effaced and +2 station, pushed over intact perineum to deliver a viable female , weight and Apgars as above. Head of delivered in CHRYSTAL position. Loose nuchal/body cord were noted and delivered through. Body and shoulders were delivered without difficulty. was delivered to maternal abdomen and nursing staff. Delayed cord clamping was performed for 60 seconds. Cord was clamped and cut. Cord blood was obtained. Placenta delivered spontaneously intact with 3-vessel cord. IV oxytocin and fundal massage were given for excellent hemostasis. Vagina, cervix, perineum, and placenta were inspected. A first degree laceration was repaired in the usual fashion. A left labial laceration was hemostatic and not needed to be repaired. Sponge and needle counts correct x2. No sponges were left behind. Mother and stable in immediate period. [facility] Vaginal Delivery Charge Vaginal Delivery Codes: 45703 global code for the antepartum, delivery, and post- Delivery Type Details: and 1st Degree LAC
[2020-12-23] MEDS ORDERED: HYDROCORTISONE ACETATE 25 MG SUPP PR PRN (14:05)
[2020-12-23] MEDS ORDERED: SUPERCREAM 0.870% 15 GM JAR EXT PRN (14:05)
[2020-12-23] MEDS ORDERED: DIPHTHERIA/TETANUS/PERTUSSIS 0.5 ML SYR/VIAL IM ONE (14:05)
[2020-12-23] MEDS ORDERED: bisacodyL 10 MG SUPP PR PRN (14:05)
[2020-12-23] MEDS ORDERED: IBUPROFEN 600 MG TAB PO PRN (14:05)
[2020-12-23] MEDS ORDERED: BENZOCAINE 20% AER SPR 82.5 GM CAN EXT PRN (14:05)
[2020-12-23] MEDS ORDERED: AMMONIA, AROMATIC INHAL 1 EA AMP INH ONE (19:02)
--- NOTE | 2020-12-24 07:24 | Obstetrical Progress Note ---
Date of Service December 24, 2020 Assessment & Plan (1) state: 25 yo PP1 from complicated by COVID+ test on admission, doing well -Meeting all pp milestones -O+/rubella immune/ -f/u 6 weeks for appt, stable for d/c home today. Subjective Ambulation: ambulating normally Voiding: no voiding problems Passing Gas:: Yes Diet Tolerance:: regular diet Lochia:: Small Feeding Type:: breast feeding Pain well managed with medication Review of Systems Denies fevers, chills, n/v, CHOI, CP, SOB Physical Exam Constitutional WD/WN, vitals as above no acute distress Respiratory normal respiratory effort, lungs clear to auscultation Cardiovascular RRR, no murmur, no edema Gastrointestinal (Abdomen) Percussion/Palpation: abdomen soft; abdomen nontender fundus firm at umbilicus and NT Musculoskeletal BLE symmetric, nonerythematous, nontender Results & Data ([facility]) Vital Signs (Past 12 Hours) Vital Signs Temp Pulse Pulse Resp BP BP Pulse Ox 12/24/20 03:02 97.9 F 84 20 93/61 L 96 12/23/20 23:55 98.2 F 80 18 96/61 L 96 12/23/20 19:45 98.2 F 84 18 91/61 L 98
[2020-12-24 07:51] VITALS: O2SAT 97
[2020-12-24] MEDS ORDERED: PRENATAL VITAMIN 1 TAB PO SCH (08:00)
[2020-12-24 11:14] VITALS: BP 96/61; PULSE 93; TEMP 97.7
== END 2020-12-24 15:20 | disposition home or self-care (01) | DRG 805 ==
LOC: OPB 11:23 → 4S1 11:31 → 3E 19:55

== ENCOUNTER 2022-02-18 10:14 | Inpatient (IN) ==
[2022-02-18] MEDS ORDERED: OXYTOCIN 30 UNITS/500ML NSS IV ONE (10:37)
--- NOTE | 2022-02-18 10:57 | Delivery Summary ---
Vaginal Delivery Summary Date of Service February 18, 2022 Vaginal Delivery Summary DIAGNOSES: 1. Vides intrauterine at 40w1d gestation. 2. Spontaneous onset of labor. 3. Group B Streptococcus Neg. PROCEDURE: Spontaneous vaginal delivery without laceration. SURGEON: Casie Girard MD. CUSTOMER RELATIONS COORDINATOR: None. ESTIMATED BLOOD LOSS: 250 mL. COMPLICATIONS: None. PLACENTA: Spontaneous and intact with a 3-vessel cord. DISPOSITION: Stable to labor and delivery. DESCRIPTION: The patient pushed well and brought the head to in DOA position. The infant's head was allowed to deliver with contraction force and no further active pushing, with the perineum protected during this time. There was no nuchal cord. The right shoulder was anterior. The shoulders and body delivered without any difficulty, and the infant was placed on the maternal abdomen. It was vigorous and moving all extremities, and making respiratory efforts. The cord was doubly clamped by the MD and then cut by the FOB. The placenta delivered spontaneously and was noted to be intact and with a 3VC. The cervix, vagina and perineum were examined and were found to be without defect requiring repair. The fundus was firm and lochia minimal immediately after delivery. [facility] Vaginal Delivery Charge Vaginal Delivery Codes: 08360 global code for the antepartum, delivery, and post-
[2022-02-18] MEDS ORDERED: DIPHTHERIA/TETANUS/PERTUSSIS 0.5mL SYR/VIAL (Age 7+yrs) IM ONE (11:00)
[2022-02-18] MEDS ORDERED: OXYTOCIN 30 UNITS/500 ML BAG IV PRN ×2 (11:00→11:02)
[2022-02-18] MEDS ORDERED: IBUPROFEN 600 MG TAB PO PRN ×2 (11:00→11:02)
[2022-02-18] MEDS ORDERED: BENZOCAINE 20% AER SPR 82.5 GM CAN EXT PRN ×2 (11:00→11:02)
[2022-02-18] MEDS ORDERED: ACETAMINOPHEN 325 MG TAB PO PRN ×2 (11:00→11:02)
[2022-02-18] MEDS ORDERED: HYDROCORTISONE ACETATE 25 MG SUPP PR PRN ×2 (11:00→11:02)
[2022-02-18] MEDS ORDERED: bisacodyL 10 MG SUPP PR PRN (11:00)
[2022-02-18] MEDS ORDERED: oxyCODONE/ACETAMINOPHEN 5mg/325mg TAB PO PRN (11:02)
[2022-02-18] MEDS ORDERED: LACTATED RINGER'S 1,000 ML IV SCH (11:02)
[2022-02-18] MEDS ORDERED: OXYTOCIN 10 UNITS/ML VIAL ONE (13:53)
[2022-02-18] MEDS ORDERED: DOCUSATE SODIUM 100 MG CAP PO SCH ×2 (21:00)
--- NOTE | 2022-02-19 06:29 | Obstetrical Progress Note ---
Date of Service <Alejandrina Sidhu MD - Last Filed: 02/19/22 06:29> February 19, 2022 Assessment & Plan <Alejandrina Sidhu MD - Last Filed: 02/19/22 06:29> (1) care following vaginal delivery: 26 y/o female PPD1 after . Overall doing well. Satisfactory post- progress. Encourage ambulation. <Casie Girard MD - Last Filed: 02/19/22 07:23> (1) care following vaginal delivery: Subjective <Alejandrina Sidhu MD - Last Filed: 02/19/22 06:29> Ambulation: ambulating normally Voiding: no voiding problems Passing Gas:: Yes Diet Tolerance:: regular diet Lochia:: Small Feeding Type:: breast feeding Physical Exam <Alejandrina Sidhu MD - Last Filed: 02/19/22 06:29> Constitutional WD/WN, vitals as above Respiratory normal respiratory effort, lungs clear to auscultation Cardiovascular RRR, no murmur, no edema Extremities: no calf tenderness Psychiatric A+Ox3, euthymic affect Genitourinary OB Exam Abdomen: + fundal height (@ the level) Fundus: + firm Results & Data ([facility]) <Alejandrina Sidhu MD - Last Filed: 02/19/22 06:29> Vital Signs (Past 12 Hours) Vital Signs Temp Pulse Resp BP Pulse Ox O2 Del Method 02/19/22 03:00 36.7 C 62 16 98/63 L Room Air 02/18/22 23:15 36.9 C 90 16 105/70 99 Room Air 02/18/22 20:15 36.7 C 90 16 102/69 99 Room Air <Casie Girard MD - Last Filed: 02/19/22 07:23> Co-Signing Physician Notes Resident Physician Supervision Note: I interviewed and examined the patient. Discussed with Dr. Sidhu and agree with findings and plan as documented in the note. Any exceptions or clarifications are listed here: [ ] Documented By: Casie Girard MD, FACOG Resident Activity Tracking <Alejandrina Sidhu MD - Last Filed: 02/19/22 06:29> Resident Involvement: Resident Care Provided Care Provided: Adult Hospital Medicine and OB Delivery
[2022-02-19 07:09] LABS: Hematocrit (blood only) 36.7 % (34.1-44.9); Hemoglobin 12.2 g/dl (12.0-16.0); Mean Corpuscular Hemoglobin 28.6 pg (25.0-34.0); Mean Corpuscular Hgb Conc 33.2 g/dL (32.0-36.0); Mean Corpuscular Volume 85.9 fL (80.0-100.0); Mean Platelet Volume 10.5 fL (9.4-12.3); Platelet Count 220 K/uL (130-400); RDW Standard Deviation 40.4 fL (36.4-46.3); Red Blood Count 4.27 M/uL (3.93-5.22)
[2022-02-19] MEDS ORDERED: PRENATAL VITAMIN 1 TAB PO SCH ×2 (08:00)
[2022-02-19] MEDS ORDERED: bisacodyL 5 MG TABEC PO SCH (20:00)
== END 2022-02-19 13:35 | disposition home or self-care (01) | DRG 807 ==
LOC: OPB 10:14 → 4S1 10:15 → 4E2 13:17